=== PATIENT | female | born 1955 | race Caucasian/White ===

== ENCOUNTER 2017-04-26 22:44 | Emergency (ER) | payer MEDICAID ==
[~2017-04-26] VITALS: Ht 157.5 cm; Wt 63.5 kg
[~2017-04-26 22:44] MED LIST: [UNRECOGNIZED DRUG - OTHER]
[2017-04-26 22:49] VITALS: BP 143/92
[2017-04-26 23:25] LABS: Eosinophils # (auto) 0.1 uL; Hemoglobin 14.7 g/dL (12.2-16.2); Lymphocytes # (auto) 1.4 uL; Mean Corpuscular Volume 84.5 fL (80.0-100.0); Red Cell Distribution Width 13.3 % (11.8-14.3)
[2017-04-26 23:27] LABS: Basophils # (auto) 0.1 uL; Basophils % (auto) 0.5 % (0.0-2.0); Hematocrit 43.6 % (36.0-46.0); Lymphocytes % (auto) 11.3 % (10.0-50.0); Mean Corpuscular Hemoglobin 28.5 pg (28.0-32.0); Mean Corpuscular Hgb Conc. 33.7 g/dL (32.0-36.0); Monocytes # (auto) 0.6 uL; Monocytes % (auto) 4.8 % (0.0-12.0); Neutrophils # (auto) 9.9 uL; Neutrophils % (auto) 82.4 % (37.0-80.0); Platelet Count (auto) 620 10^3/uL (140-450); Red Blood Cells 5.16 10^6/uL (4.0-5.20)
[2017-04-26 23:40] LABS: INR 0.93 (0.9-1.15); Partial Thromboplastin Time 23.7 sec (22.64-33.71); Prothrombin Time 10.1 sec (9.37-12.3)
[2017-04-26 23:51] LABS: Albumin 3.9 g/dL (3.4-5.0); BUN/Creatinine Ratio 14.6; Calcium 9.3 mg/dL (8.5-10.1); Potassium 3.6 mmol/L (3.5-5.1)
[2017-04-26 23:54] LABS: Bilirubin, Total 0.6 mg/dL (0.2-1.0); Total Protein 8.6 g/dL (6.4-8.2)
== END 2017-04-27 00:09 | disposition left against medical advice (07) ==
LOC: ER 22:48
DX: R10.9 Unspecified abdominal pain (principal); R11.2 Nausea with vomiting, unspecified; Z53.21 Procedure and treatment not carried out due to patient leaving prior to being seen by health care provider
CPT/HCPCS: 36415; 74176; 80053; 82150; 83690; 85025; 85610; 85730; 93005

== ENCOUNTER 2018-04-03 16:32 | Emergency (ER) | payer MEDICAID ==
[~2018-04-03] VITALS: Ht 157.5 cm; Wt 63.5 kg
[2018-04-03 17:07] VITALS: BP 144/77
== END 2018-04-03 18:00 | disposition left against medical advice (07) ==
LOC: ER 16:44
DX: M79.605 Pain in left leg (principal); Z53.21 Procedure and treatment not carried out due to patient leaving prior to being seen by health care provider

== ENCOUNTER 2018-06-25 20:30 | Emergency (ER) | payer MEDICAID ==
[~2018-06-25] VITALS: Ht 157.5 cm; Wt 63.5 kg
[2018-06-25 20:57] VITALS: BP 146/84
== END 2018-06-26 02:13 | disposition left against medical advice (07) ==
LOC: ER 20:35
DX: M25.552 Pain in left hip (principal); Z53.21 Procedure and treatment not carried out due to patient leaving prior to being seen by health care provider; Z91.81 History of falling
CPT/HCPCS: 73502

== ENCOUNTER 2018-06-30 08:52 | Emergency (ER) | payer MEDICAID ==
[~2018-06-30] VITALS: Ht 157.5 cm; Wt 63.5 kg
[2018-06-30 09:04] VITALS: BP 143/84
[2018-06-30] MEDS ORDERED: SODIUM CHLORIDE 0.9% 1,000 ML IV ONE (09:45)
== END 2018-06-30 10:33 | disposition left against medical advice (07) ==
LOC: ER 08:52
DX: S32.9XXA Fracture of unspecified parts of lumbosacral spine and pelvis, initial encounter for closed fracture (principal); F17.210 Nicotine dependence, cigarettes, uncomplicated; Z88.1 Allergy status to other antibiotic agents; Z53.29 Procedure and treatment not carried out because of patient's decision for other reasons; W01.0XXA Fall on same level from slipping, tripping and stumbling without subsequent striking against object, initial encounter; Y93.89 Activity, other specified; Y99.8 Other external cause status; Y92.89 Other specified places as the place of occurrence of the external cause

== ENCOUNTER 2018-07-02 11:19 | Emergency (ER) | payer MEDICAID ==
[~2018-07-02] VITALS: Ht 157.5 cm; Wt 63.5 kg
[2018-07-02 11:35] VITALS: BP 139/84
== END 2018-07-02 16:10 | disposition left against medical advice (07) ==
LOC: ER 11:21
DX: S32.592A Other specified fracture of left pubis, initial encounter for closed fracture (principal); F17.210 Nicotine dependence, cigarettes, uncomplicated; W18.39XA Other fall on same level, initial encounter; Y93.89 Activity, other specified; Y99.8 Other external cause status; Y92.89 Other specified places as the place of occurrence of the external cause
CPT/HCPCS: 72192; 93005